=== PATIENT | male | born 1955 | race Caucasian/White ===

== ENCOUNTER 2019-06-17 13:41 | Outpatient (CLI) | payer MEDICARE, MEDICAID, SELFPAY ==
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
== END 2019-06-17 13:42 | disposition home or self-care (01) ==
LOC: WPI 13:49
PROVIDERS: Family Provider Internal Medicine; PCP Internal Medicine; Visit Provider Specialist
DX: Z18.10 Retained metal fragments, unspecified (principal); M25.752 Osteophyte, left hip
CPT/HCPCS: 73552; 73590

== ENCOUNTER 2019-06-30 13:39 | Outpatient (CLI) | payer MEDICARE, MEDICAID, SELFPAY ==
--- NOTE | 2019-06-30 14:30 | MR_ITS ---
WS: [id number] MRI HEAD WITH CONTRAST WITH ATTENTION TO THE INTERNAL AUDITORY CANALS TECHNIQUE: Sagittal T1, T2 axial, T2 axial flair, axial susceptibility weighted imaging, axial diffus ion weighted images, and coronal T2 images were obtained. Pre and post T1 axial and post T1 coronal i mages. ADC and FSPGR images. Post gadolinium images with attention to the internal auditory canals. A xial fiesta imaging. CLINICAL INFORMATION: DIZZINESS / GIDDINESS COMPARISON: None. FINDINGS: No evidence of restricted diffusion to suggest acute ischemia. Ventricular system and basal cisterns are patent. Mild small vessel changes. Moderate parenchymal volume loss. Encephalomalacia and gliosis left anterior temporal lobe likely due to prior ischemia or trauma. 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 Normal vascular flow voids at the skull base. No ex tra-axial fluid collections. Mild mucosal thickening in the ethmoid air cells. Mastoid air cells are well aerated. Trace mucosal thickening right mastoid tip. Proximal 7th and 8th cranial nerves appear normal. Normal trigeminal nerve root entry zones. No abnor mal intracranial enhancement. No evidence of enhancing IAC or CP angle mass. Normal optic chiasm and pituitary infundibulum. Normal cavernous sinuses. Incidental slightly low-lying cerebellar tonsils. Mild spinal canal narrowing in the upper cervical s pine at C3-C4. IMPRESSION: 1. No evidence of restricted diffusion to suggest acute ischemia. 2. Proximal 7th and 8th cranial nerves are normal in appearance. No evidence of enhancing IAC or CP angle mass. 3. Paranasal sinuses and mastoid air cells are well aerated. 4. Mild small vessel changes with moderate parenchymal volume loss. 5. Chronic appearing encephalomalacia and gliosis left anterior temporal lobe likely due to prior is chemia or trauma. 6. 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 7. Incidental slightly low-lying cerebral tonsils. 8. Mild central canal stenosis in the upper cervical spine at C3-C4.
[2019-06-30 15:43] LABS: Blood Urea Nitrogen 12 mg/dL (8-23); Glomerular Filtration Rate 67.4 mL/min (90-130)
== END 2019-06-30 13:40 | disposition home or self-care (01) ==
PROVIDERS: Family Provider Internal Medicine; PCP Internal Medicine; Visit Provider Specialist
DX: I63.9 Cerebral infarction, unspecified (principal); G93.89 Other specified disorders of brain; R07.89 Other chest pain; M48.02 Spinal stenosis, cervical region
CPT/HCPCS: 70553; 82565; 84520

== ENCOUNTER 2019-07-18 09:12 | Outpatient (CLI) | payer MEDICARE, MEDICAID, SELFPAY ==
[2019-07-18 09:51] LABS: Basophils # 0.1 10^3/uL (0.0-0.1); Basophils % 1.5 %; Eosinophils # 0.2 10^3/uL (0.0-0.8); Eosinophils % 5.8 %; Hematocrit 42.8 % (42.0-52.0); Hemoglobin 13.7 g/dL (11.7-16.6); Lymphocytes # 1.2 10^3/uL (0.8-4.8); Lymphocytes % 28.2 %; Mean Corpuscular Hemoglobin 27.6 pg (28.0-34.0); Mean Corpuscular Volume 86.3 fL (80-94); Mean Platelet Volume 11.6 fL (7.4-10.4); Monocytes # 0.4 10^3/uL (0.2-0.9); Neutrophils # 2.2 10^3/uL (1.8-7.7); Neutrophils % 53.5 %; Nucleated Red Blood Cells % 0 %; Platelet Count 208 10^3/cmm (130-400); Red Blood Count 4.96 10^6/uL (4.1-5.3); White Blood Count 4.1 10^3/uL (4.0-10.0)
[2019-07-18 10:03] LABS: Alanine Aminotransferase 15 U/L (0-41); Albumin Level 4.4 g/dL (3.5-5.2); Alkaline Phosphatase 62 IU/L (40-130); Anion Gap 16.3 (5-19); Aspartate Amino Transferase 14 U/L (0-40); Blood Urea Nitrogen 17 mg/dL (8-23); Calcium 10.3 mg/dL (8.5-10.5); Carbon Dioxide 28 mmol/L (22-29); Chloride 96 mmol/L (98-107); Chol HDL Ratio 2.59 mg/dL (1.0-5.00); Cholesterol 145 mg/dL (0-200); Globulin 3.1 g/dL (1.3-4.6); Glomerular Filtration Rate 67.4 mL/min (90-130); Glucose 188 mg/dL (74-106); HDL Cholesterol 56 mg/dL (60-100); LDL Cholesterol Calculated 78 mg/dL (50-129); LDL HDL Ratio 1.39 RATIO (0.00-3.22); Potassium 5.3 mmol/L (3.5-5.1); Sodium 135 mmol/L (136-145); Thyroid Stimulating Hormone 0.93 uIU/mL (0.27-4.20); Total Bilirubin 0.7 mg/dL (0.15-1.2); Total Protein 7.5 g/dL (6.6-8.7); Triglycerides 53 mg/dL (0-150)
[2019-07-18 10:26] LABS: Estmated Average Glucose 183
== END 2019-07-18 09:13 | disposition home or self-care (01) ==
LOC: LAB 09:17
PROVIDERS: Family Provider Internal Medicine; PCP Internal Medicine; Visit Provider Internal Medicine
DX: E11.9 Type 2 diabetes mellitus without complications (principal); E78.5 Hyperlipidemia, unspecified; I10 Essential (primary) hypertension
CPT/HCPCS: 36415; 80053; 80061; 83036; 84443; 85025

== ENCOUNTER 2019-11-22 11:34 | Outpatient (RCR) | payer MEDICARE, MEDICAID, SELFPAY | END 2019-12-13 23:59 | disposition home or self-care (01) | LOC: SPT 11:34 | PROVIDERS: PCP Internal Medicine; Visit Provider Specialist | DX: R42 Dizziness and giddiness (principal) | CPT/HCPCS: 97112; 97162 ==

== ENCOUNTER 2019-12-14 06:00 | Outpatient (RCR) | payer MEDICARE, MEDICAID, SELFPAY | END 2020-01-13 23:59 | disposition home or self-care (01) | LOC: SPT 06:00 | PROVIDERS: PCP Internal Medicine; Visit Provider Specialist | DX: R42 Dizziness and giddiness (principal) | CPT/HCPCS: 97112 ==

== ENCOUNTER 2020-06-28 21:49 | Emergency (ER) | payer MEDICARE, MEDICAID, SELFPAY ==
[2020-06-28 21:52] VITALS: BP 141/73; PULSE 125; RESP 18; TEMP 37.5; O2SAT 96; BMI 29.5
--- NOTE | 2020-06-28 22:32 | XR_ITS ---
WS: [id number] KUB, 06/28/2020 Clinical Data: constipation Comparison: KUB, 01/04/2016. Findings: No abnormal intraabdominal masses or calcifications are seen. There is no dilatated small bowel or ev idence of obstruction. There is a moderate amount of fecal material throughout the colon. There is air in the small bowel. XR/XR KUB [id number] Impression: Negative KUB.
--- NOTE | 2020-06-28 22:34 | W.ED.ABDPA2 ---
HPI - Abdominal Pain General: Chief Complaint: Abdominal Pain Stated Complaint: pains from constipation, unable to urinate. Time Seen by Provider: 06/28/20 22:16 Source: patient Mode of arrival: ambulatory Limitations: no limitations History of Present Illness: HPI narrative: 64-year-old male who has a history of severe constipation the past. He states he is not had a bowel movement last 3 to 4 days. He states is causing have lower abdominal pain and is caused him to have difficulty urinating. He states he had difficulty urinating in the past before with his constipation as well. States he has lower abdominal pain he rates a 6 out of 10. He has been taking stool softeners with no improvement. Associated Symptoms: Reports constipation; Denies chills and fever(s) Review of Systems Const: Denies: fever(s), chills, body aches or change in appetite Eyes: Denies: blurry vision or eye discomfort ENMT: Denies: throat pain or dental pain Card: Denies: chest pain Resp: Denies: dyspnea GI: Reports: abdominal pain and constipation : Reports: difficulty urinating Musc: Denies: neck pain or back pain Skin/Breast: Denies: rash Neuro: Denies: headache(s) Psych: Denies: depression Uche/Lymph: Denies: easy bruising All/Imm: Denies: urticaria PFSH ED PFSH: Family History (Updated 05/11/20 @ 09:27 by Caitlin Knox RN) Family/Other Cancer Diabetes CAD (coronary artery disease) Social History (Updated 05/11/20 @ 09:28 by Caitlin Knox RN) Smoking and tobacco status: former smoker Alcohol intake: never Marital status: Current occupational status: disabled Physical Exam Const: COMMON NORMALS: no acute distress, patient oriented x3 and healthy appearing HENMT: COMMON NORMALS: normocephalic and atraumatic HEAD & SCALP: normocephalic and atraumatic Eye: COMMON NORMALS: Equal, round and reactive pupils present and EOMs intact bilaterally PUPIL: Yes Equal, round and reactive pupils present Neck/C-Spine: COMMON NORMALS: full ROM and supple Chest: COMMONS NORMALS: normal inspection of the chest and normal palpation of entire chest wall Resp: COMMON NORMALS: normal respiratory effort, No retractions, No use of accessory muscles and clear to auscultation bilaterally AUSCULTATION: clear to auscultation bilaterally Cardio: COMMON NORMALS: regular rate, regular rhythm and No murmurs present (Cardio) RATE: regular rate RHYTHM: regular rhythm GI: COMMON NORMALS: Normal to inspection, nondistended, normoactive bowel sounds present, Soft to palpation and no masses PALPATION: Yes Soft to palpation OTHER: lower abdominal tenderness Extremity: COMMON NORMALS: normal to inspection and full ROM Neuro: COMMON NORMALS: patient oriented x3, moves all extremities and no focal motor deficits Psych: COMMON NORMALS: mental status grossly normal, Normal thought process present and cooperative THOUGHT PROCESS: Normal thought process present Skin: COMMON NORMALS: no rashes or lesions noted and no wounds GENERAL SKIN EXAM: no rashes or lesions noted Course Vital Signs: Vital signs: Vital Signs Temperature 99.5 F 06/28/20 21:52 Pulse Rate 110 H 06/28/20 23:41 Respiratory Rate 18 06/28/20 21:52 Blood Pressure 124/90 06/28/20 23:41 Pulse Oximetry 95 06/28/20 23:41 MDM - Abdominal Pain MDM Narrative: Medical decision making narrative: Patient presents here with constipation. He feels much improved here after having a bowel movement. Patient was given an enema and lactulose. Abdominal exam at discharge is benign. Patient blood work is normal. He has no signs of acute surgical issue. He is stable for discharge will prescribe her MiraLAX. Lab Data: Labs: Lab Results 06/28/20 06/28/20 Range/Units 23:24 23:24 WBC 10.2 H (4.0-10.0) 10^3/ uL RBC 5.25 (4.1-5.3) 10^6/u L Hgb 15.0 (11.7-16.6) g/dL Hct 45.5 (42.0-52.0) % MCV 86.7 (80-94) fL MCH 28.6 (28.0-34.0) pg MCHC 33.0 (30.0-36.0) g/dL RDW 12.7 (12.1-15.1) % Plt Count 213 (130-400) 10^3/c mm MPV 12.0 H (7.4-10.4) fL Neut % (Auto) 86.9 % Lymph % (Auto) 6.8 % [place] % (Auto) 5.2 % Eos % (Auto) 0.3 % Baso % (Auto) 0.4 % Neut # (Auto) 8.86 H (1.8-7.7) 10^3/u L Lymph # (Auto) 0.7 L (0.8-4.8) 10^3/u L [place] # (Auto) 0.5 (0.2-0.9) 10^3/u L Eos # (Auto) 0.0 (0.0-0.8) 10^3/u L Baso # (Auto) 0.0 (0.0-0.1) 10^3/u L Nucleated RBC % (a uto) 0 % Nucleated RBCs # 0.0 /100WBC Sodium 135 L (136-145) mmol/L Potassium 5.0 (3.5-5.1) mmol/L Chloride 98 (98-107) mmol/L Carbon Dioxide 26 (22-29) mmol/L Anion Gap 16.0 (5-19) BUN 19 (8-23) mg/dL Creatinine 1.0 (0.7-1.2) mg/dL GFR Calculation 75.0 L (90-130) mL/min Glucose 406 H (65-115) mg/dL Calculated Osmolal ity 299 H (285-295) mOsm/k g Calcium 9.9 (8.5-10.5) mg/dL Total Bilirubin 0.9 (0.15-1.2) mg/dL AST 17 (0-40) U/L ALT 39 (0-41) U/L Alkaline Phosphata se 64 (40-130) IU/L Total Protein 7.4 (6.6-8.7) g/dL Albumin 4.8 (3.5-5.2) g/dL Globulin 2.6 (1.3-4.6) g/dL Imaging Data ^: CXR: Attestation: I personally reviewed and interpreted this imaging study as follows: My impression: constipation Discharge Plan Discharge Patient Disposition: Home Clinical Impression: Constipation Qualifiers: Constipation type: unspecified constipation type Qualified Code(s): K59.00 - Constipation, unspecified Condition: Stable Prescriptions: New Miralax 17 gram/dose powder 17 g PO DAILY PRN (Reason: constipation) Qty: 119 RF: 0 Discharge Orders: Discharge ED (Routine); Ordered 06/29/20 Ordered By: Cris Sifuentes Referrals: Gillian Redmond MD [Primary Care Provider] - 1-3 days Discharge Diet: Advance as tolerated Discharge Activity: Resume usual activity Patient Instructions: Constipation (ED) Coding Level of Care Code ED Manager Installation for Chg Fwd Exam Comprehensive
[2020-06-28] MEDS: lactulose oral liq 20 gm/30 mL UDC 30 GM PO (22:48)
[2020-06-28 22:50] VITALS: BP 116/88; PULSE 126; O2SAT 96
[2020-06-28 23:41] VITALS: BP 124/90; PULSE 110; O2SAT 95
[2020-06-28 23:45] LABS: Basophils % 0.4 %; Eosinophils % 0.3 %; Hematocrit 45.5 % (42.0-52.0); Lymphocytes # 0.7 10^3/uL (0.8-4.8); Lymphocytes % 6.8 %; Mean Corpuscular Hemoglobin 28.6 pg (28.0-34.0); Mean Corpuscular Volume 86.7 fL (80-94); Monocytes # 0.5 10^3/uL (0.2-0.9); Monocytes % 5.2 %; Neutrophils # 8.86 10^3/uL (1.8-7.7); Neutrophils % 86.9 %; Nucleated Red Blood Cells % 0 %; Platelet Count 213 10^3/cmm (130-400); Red Blood Count 5.25 10^6/uL (4.1-5.3); Red Cell Distribution Width 12.7 % (12.1-15.1); White Blood Count 10.2 10^3/uL (4.0-10.0)
[2020-06-29 00:11] LABS: Alanine Aminotransferase 39 U/L (0-41); Albumin Level 4.8 g/dL (3.5-5.2); Alkaline Phosphatase 64 IU/L (40-130); Aspartate Amino Transferase 17 U/L (0-40); Blood Urea Nitrogen 19 mg/dL (8-23); Calcium 9.9 mg/dL (8.5-10.5); Carbon Dioxide 26 mmol/L (22-29); Chloride 98 mmol/L (98-107); Globulin 2.6 g/dL (1.3-4.6); Glucose 406 mg/dL (65-115); Osmolality Calculated 299 mOsm/kg (285-295); Sodium 135 mmol/L (136-145); Total Bilirubin 0.9 mg/dL (0.15-1.2); Total Protein 7.4 g/dL (6.6-8.7)
[2020-06-29] MEDS: Fleet Enema 133 mL Enema PR (00:35)
== END 2020-06-29 01:41 | disposition home or self-care (01) ==
PROVIDERS: Emergency Provider Emergency Medicine; PCP Internal Medicine
DX: K59.00 Constipation, unspecified (principal); Z87.891 Personal history of nicotine dependence
CPT/HCPCS: 12345; 74018; 80053; 85025; 99283

== ENCOUNTER → 2020-07-17 11:28 | Outpatient (BNVA) | payer MEDICARE, MEDICAID, SELFPAY | PROVIDERS: PCP Internal Medicine; Referring Provider Internal Medicine; Visit Provider Podiatrist Foot & Ankle Surgery | DX: E11.8 Type 2 diabetes mellitus with unspecified complications (principal); M79.672 Pain in left foot | CPT/HCPCS: 73630 ==

== ENCOUNTER 2020-08-28 10:42 | Outpatient (CLI) | payer MEDICARE, MEDICAID, SELFPAY ==
--- NOTE | 2020-08-28 10:45 | US_ITS ---
WS: [id number] INDICATION: Right cervical neck lump TECHNIQUE: Ultrasound soft tissue FINDINGS: Ultrasound soft tissue area of concern. In the area of palpable concern is a 2.4 x 2.5 x 0. 8 CM well-circumscribed slightly hypoechoic lesion that likely represents incidental lipoma. This schuler s not appear to represent a lymph node. This is superficial in location. No other significant finding s. US/US soft tissue/extremity [id number] IMPRESSION: 2.5 cm suspected lipoma in the area of palpable concern. No other s uspicious findings.
== END 2020-08-28 10:43 | disposition home or self-care (01) ==
LOC: US 10:43
PROVIDERS: PCP Internal Medicine; Visit Provider Internal Medicine
DX: M79.89 Other specified soft tissue disorders (principal)
CPT/HCPCS: 76882

== ENCOUNTER → 2020-09-19 15:06 | Outpatient (BNVA) | payer MEDICARE, MEDICAID, SELFPAY | PROVIDERS: PCP Internal Medicine; Visit Provider Urology | DX: H20.00 Unspecified acute and subacute iridocyclitis (principal); R33.8 Other retention of urine; N40.1 Benign prostatic hyperplasia with lower urinary tract symptoms; N52.9 Male erectile dysfunction, unspecified | CPT/HCPCS: 81003 ==

== ENCOUNTER → 2021-09-19 13:55 | Outpatient (BNVA) | payer MEDICARE, MEDICAID, SELFPAY | PROVIDERS: PCP Internal Medicine; Visit Provider Urology | DX: N40.1 Benign prostatic hyperplasia with lower urinary tract symptoms (principal); N52.9 Male erectile dysfunction, unspecified; Z12.5 Encounter for screening for malignant neoplasm of prostate | CPT/HCPCS: 81003; G0103 ==

== ENCOUNTER 2021-09-24 20:00 | Outpatient (CLI) | payer MEDICARE, MEDICAID, SELFPAY | END 2021-09-24 20:01 | disposition home or self-care (01) | LOC: SLEEP 09-25 06:44 | PROVIDERS: PCP Internal Medicine; Visit Provider Internal Medicine | DX: G47.10 Hypersomnia, unspecified (principal); R53.83 Other fatigue; R06.83 Snoring; R09.02 Hypoxemia | CPT/HCPCS: 95810 ==

== ENCOUNTER → 2021-10-29 09:21 | Outpatient (BNVA) | payer MEDICARE, MEDICAID, SELFPAY | PROVIDERS: PCP Internal Medicine; Visit Provider Podiatrist Foot & Ankle Surgery | DX: E11.42 Type 2 diabetes mellitus with diabetic polyneuropathy (principal); I73.9 Peripheral vascular disease, unspecified; M21.70 Unequal limb length (acquired), unspecified site; L84 Corns and callosities; M20.40 Other hammer toe(s) (acquired), unspecified foot; M21.40 Flat foot [pes planus] (acquired), unspecified foot; M21.372 Foot drop, left foot; L60.3 Nail dystrophy; E11.8 Type 2 diabetes mellitus with unspecified complications | CPT/HCPCS: 11056; 11721 ==

== ENCOUNTER → 2022-02-10 13:19 | Outpatient (BNVA) | payer MEDICARE, MEDICAID, SELFPAY | PROVIDERS: PCP Internal Medicine; Visit Provider Podiatrist Foot & Ankle Surgery | DX: E11.8 Type 2 diabetes mellitus with unspecified complications (principal); I73.9 Peripheral vascular disease, unspecified; L84 Corns and callosities; E11.42 Type 2 diabetes mellitus with diabetic polyneuropathy; M20.40 Other hammer toe(s) (acquired), unspecified foot; M21.372 Foot drop, left foot; L60.3 Nail dystrophy; M21.41 Flat foot [pes planus] (acquired), right foot; M21.42 Flat foot [pes planus] (acquired), left foot; Z79.4 Long term (current) use of insulin; Z79.84 Long term (current) use of oral hypoglycemic drugs; M21.952 Unspecified acquired deformity of left thigh | CPT/HCPCS: 11056; 11721 ==

== ENCOUNTER → 2022-04-29 09:24 | Outpatient (BNVA) | payer MEDICARE, MEDICAID, SELFPAY | PROVIDERS: PCP Internal Medicine; Visit Provider Podiatrist Foot & Ankle Surgery | DX: E11.8 Type 2 diabetes mellitus with unspecified complications (principal); I73.9 Peripheral vascular disease, unspecified; M21.952 Unspecified acquired deformity of left thigh; M21.42 Flat foot [pes planus] (acquired), left foot; L84 Corns and callosities; E11.42 Type 2 diabetes mellitus with diabetic polyneuropathy; M20.40 Other hammer toe(s) (acquired), unspecified foot; M21.372 Foot drop, left foot; L60.3 Nail dystrophy | CPT/HCPCS: 11056; 11721 ==

== ENCOUNTER → 2022-08-05 09:30 | Outpatient (BNVA) | payer MEDICARE, MEDICAID, SELFPAY | PROVIDERS: PCP Internal Medicine; Visit Provider Podiatrist Foot & Ankle Surgery | DX: I73.9 Peripheral vascular disease, unspecified (principal); E11.42 Type 2 diabetes mellitus with diabetic polyneuropathy; L84 Corns and callosities; M21.372 Foot drop, left foot; L60.3 Nail dystrophy; M21.70 Unequal limb length (acquired), unspecified site; M21.42 Flat foot [pes planus] (acquired), left foot; M21.41 Flat foot [pes planus] (acquired), right foot; M20.40 Other hammer toe(s) (acquired), unspecified foot | CPT/HCPCS: 11055; 11721; 99214 ==

== ENCOUNTER → 2022-08-28 10:57 | Outpatient (BNVA) | payer MEDICARE, MEDICAID, SELFPAY | PROVIDERS: PCP Internal Medicine; Visit Provider Podiatrist Foot & Ankle Surgery | DX: I73.9 Peripheral vascular disease, unspecified (principal); L84 Corns and callosities; E11.42 Type 2 diabetes mellitus with diabetic polyneuropathy; M21.372 Foot drop, left foot; L60.3 Nail dystrophy; M21.952 Unspecified acquired deformity of left thigh; Z79.4 Long term (current) use of insulin; Z79.84 Long term (current) use of oral hypoglycemic drugs; M20.40 Other hammer toe(s) (acquired), unspecified foot; M21.40 Flat foot [pes planus] (acquired), unspecified foot | CPT/HCPCS: 11056; 11721 ==

== ENCOUNTER → 2022-11-13 10:55 | Outpatient (BNVA) | payer MEDICARE, MEDICAID, SELFPAY | PROVIDERS: PCP Internal Medicine; Visit Provider Podiatrist Foot & Ankle Surgery | DX: E11.8 Type 2 diabetes mellitus with unspecified complications (principal); I73.9 Peripheral vascular disease, unspecified; L84 Corns and callosities; E11.42 Type 2 diabetes mellitus with diabetic polyneuropathy; M20.40 Other hammer toe(s) (acquired), unspecified foot; M21.372 Foot drop, left foot; L60.3 Nail dystrophy; M21.41 Flat foot [pes planus] (acquired), right foot; M21.42 Flat foot [pes planus] (acquired), left foot; Z79.4 Long term (current) use of insulin; Z79.84 Long term (current) use of oral hypoglycemic drugs | CPT/HCPCS: 11056; 11721 ==

== ENCOUNTER 2022-11-24 07:11 | Emergency (ER) | payer MEDICARE, MEDICAID, SELFPAY ==
[2022-11-24 07:13] VITALS: BP 150/108; PULSE 73; RESP 16; TEMP 36.7; O2SAT 99
--- NOTE | 2022-11-24 07:17 | XR_ITS ---
WS: [id number] XR KUB portable [id number] REASON FOR EXAM: constipation FINDINGS: Large volume stool retention throughout the entire colon with large amount of fecal material in the r ectal vault. No significant small bowel distention. No free air or retroperitoneal air. Possible small right intrarenal calculi. Otherwise no significant calcifications. No mass is identified. XR/XR KUB portable [id number] IMPRESSION: Significant fecal retention as above. Possible right renal calculi.
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
[2022-11-24 07:53] LABS: Add Urine Microscopic? NO; Charge for UA Resulting for Rev
[2022-11-24 08:02] VITALS: BP 130/65; PULSE 78; RESP 16; O2SAT 97
[2022-11-24 08:04] LABS: Glucose Urine UA 4+ (Normal); Protein Urine Neg (Negative); Specific Gravity, Urine 1.015 (1.005-1.030); Urine Appearance Clear (CLEAR); Urine Color Straw (Yellow); pH Urine 5 (5-7)
[2022-11-24 08:05] LABS: Ketones Urine 1+ (Negative)
[2022-11-24 08:06] LABS: Bilirubin Urine Neg (Negative); Blood Urine Neg (Negative); Leukocyte Esterase Urine Negative (Negative); Nitrate Urine Negative (Negative); Urobilinogen Urine Norm (Negative)
[2022-11-24 08:08] LABS: Basophils # 0.1 10^3/uL (0.0-0.1); Basophils % 0.5 %; Eosinophils # 0.1 10^3/uL (0.0-0.8); Hematocrit 44.9 % (42.0-52.0); Hemoglobin 14.5 g/dL (11.7-16.6); Lymphocytes # 0.7 10^3/uL (0.8-4.8); Lymphocytes % 6.2 %; Mean Corpuscular HGB Conc 32.3 g/dL (30.0-36.0); Mean Corpuscular Hemoglobin 29.1 pg (28.0-34.0); Mean Platelet Volume 11.2 fL (7.4-10.4); Monocytes # 0.4 10^3/uL (0.2-0.9); Monocytes % 3.9 %; Neutrophils # 9.26 10^3/uL (1.8-7.7); Nucleated Red Blood Cells % 0 %; Platelet Count 155 10^3/cmm (130-400); Red Blood Count 4.99 10^6/uL (4.1-5.3); White Blood Count 10.5 10^3/uL (4.0-10.0)
[2022-11-24 08:24] LABS: Blood Urea Nitrogen 27 mg/dL (8-23); Carbon Dioxide 21 mmol/L (22-29); Chloride 108 mmol/L (98-107); Glomerular Filtration Rate 66.6 mL/min (90-130); Glucose 181 mg/dL (65-115); Osmolality Calculated 304 mOsm/kg (285-295); Sodium 142 mmol/L (136-145)
[2022-11-24 08:28] LABS: Anion Gap 17.7 (5-19); Potassium 4.7 mmol/L (3.5-5.1)
[2022-11-24 11:31] VITALS: BP 130/65; PULSE 78; RESP 16; O2SAT 97
== END 2022-11-24 11:40 | disposition home or self-care (01) ==
PROVIDERS: Physician Assistant; Emergency Provider Family Medicine; PCP Internal Medicine
DX: K59.00 Constipation, unspecified (principal); R33.9 Retention of urine, unspecified; Z79.82 Long term (current) use of aspirin; Z79.84 Long term (current) use of oral hypoglycemic drugs; Z79.4 Long term (current) use of insulin; E11.9 Type 2 diabetes mellitus without complications; E78.5 Hyperlipidemia, unspecified; I10 Essential (primary) hypertension; Z87.820 Personal history of traumatic brain injury
CPT/HCPCS: 51702; 74018; 80048; 81003; 85025; 99284

== ENCOUNTER 2022-12-05 09:33 | Outpatient (RCR) | payer MEDICARE, MEDICAID, SELFPAY | END 2022-12-12 23:59 | disposition home or self-care (01) | LOC: SPT 09:33 | PROVIDERS: PCP Internal Medicine; Visit Provider Podiatrist Foot & Ankle Surgery | DX: M21.951 Unspecified acquired deformity of right thigh (principal) | CPT/HCPCS: 97161 ==

== ENCOUNTER 2022-12-13 06:00 | Outpatient (RCR) | payer MEDICARE, MEDICAID, SELFPAY | END 2023-01-09 12:19 | disposition home or self-care (01) | LOC: SPT 06:00 | PROVIDERS: PCP Internal Medicine; Visit Provider Podiatrist Foot & Ankle Surgery | DX: M21.951 Unspecified acquired deformity of right thigh (principal) | CPT/HCPCS: 97110 ==

== ENCOUNTER → 2023-01-15 09:23 | Outpatient (BNVA) | payer MEDICARE, MEDICAID, SELFPAY | PROVIDERS: PCP Internal Medicine; Visit Provider Podiatrist Foot & Ankle Surgery | DX: I73.9 Peripheral vascular disease, unspecified (principal); L84 Corns and callosities; M20.41 Other hammer toe(s) (acquired), right foot; M20.42 Other hammer toe(s) (acquired), left foot; M21.41 Flat foot [pes planus] (acquired), right foot; M21.42 Flat foot [pes planus] (acquired), left foot; M21.372 Foot drop, left foot; L60.3 Nail dystrophy; M21.952 Unspecified acquired deformity of left thigh; E11.9 Type 2 diabetes mellitus without complications; Z79.4 Long term (current) use of insulin; Z79.84 Long term (current) use of oral hypoglycemic drugs | CPT/HCPCS: 11056; 11721 ==

== ENCOUNTER → 2023-03-18 11:28 | Outpatient (BNVA) | payer MEDICARE, MEDICAID, SELFPAY | PROVIDERS: PCP Internal Medicine; Visit Provider Podiatrist Foot & Ankle Surgery | DX: L60.8 Other nail disorders (principal); I73.9 Peripheral vascular disease, unspecified; M21.959 Unspecified acquired deformity of unspecified thigh; L84 Corns and callosities; M20.40 Other hammer toe(s) (acquired), unspecified foot; M21.372 Foot drop, left foot; L60.3 Nail dystrophy; M21.42 Flat foot [pes planus] (acquired), left foot; M21.41 Flat foot [pes planus] (acquired), right foot; E11.8 Type 2 diabetes mellitus with unspecified complications; Z79.84 Long term (current) use of oral hypoglycemic drugs; Z79.4 Long term (current) use of insulin | CPT/HCPCS: 11056; 11721 ==

== ENCOUNTER → 2023-06-17 14:29 | Outpatient (BNVA) | payer MEDICARE, MEDICAID, SELFPAY | PROVIDERS: PCP Internal Medicine; Visit Provider Podiatrist Foot & Ankle Surgery | DX: I73.9 Peripheral vascular disease, unspecified (principal); M21.959 Unspecified acquired deformity of unspecified thigh; L84 Corns and callosities; L60.8 Other nail disorders; M20.40 Other hammer toe(s) (acquired), unspecified foot; M21.372 Foot drop, left foot; L60.3 Nail dystrophy; M21.41 Flat foot [pes planus] (acquired), right foot; M21.42 Flat foot [pes planus] (acquired), left foot | CPT/HCPCS: 11056; 11721 ==

== ENCOUNTER → 2023-09-23 14:33 | Outpatient (BNVA) | payer MEDICARE, MEDICAID, SELFPAY | PROVIDERS: PCP Internal Medicine; Visit Provider Podiatrist Foot & Ankle Surgery | DX: I73.9 Peripheral vascular disease, unspecified (principal); L84 Corns and callosities; M21.372 Foot drop, left foot; L60.3 Nail dystrophy; E11.42 Type 2 diabetes mellitus with diabetic polyneuropathy; M21.952 Unspecified acquired deformity of left thigh; Z79.4 Long term (current) use of insulin; Z79.84 Long term (current) use of oral hypoglycemic drugs | CPT/HCPCS: 11056; 11721 ==

== ENCOUNTER 2023-11-10 15:09 | Outpatient (CLI) | payer MEDICARE, MEDICAID, SELFPAY ==
--- NOTE | 2023-11-10 15:22 | XR_ITS ---
WS: [id number] Exam: XR lumbar spine 2-3V* [id number] Date/Time of Exam: 11/10/2023 3:26 PM Reason For Exam: DDD,LUMBAR W/RADICULOPATHY No acute fracture or dislocation. Mild degenerative anterolisthesis of L5 on S1. Degenerative disc na rrowing at L1-2, L2-3 and L5-S1. Facet arthropathy at L4-5 and L5-S1. Mild levoscoliosis at the thora columbar junction. XR/XR lumbar spine 2-3V* [id number] IMPRESSION: 1. Mild degenerative anterolisthesis of L5 on S1. Degenerative disc changes at several levels as discussed above. 2. No acute fracture or malalignment. Mild levoscoliosis at the thoracolumbar j unction.
--- NOTE | 2023-11-10 15:22 | XR_ITS ---
WS: [id number] Exam: XR hip LT 2-3V wo/w pel* [id number] Date/Time of Exam: 11/10/2023 3:26 PM Reason For Exam: PAIN IN LEFT HIP No acute fracture or dislocation. Mild degenerative narrowing of the joint compartment. Normal soft t issues. XR/XR hip LT 2-3V wo/w pel* [id number] IMPRESSION: 1. Mild DJD. No fracture or dislocation.
== END 2023-11-10 15:10 | disposition home or self-care (01) ==
LOC: RAD 15:12
PROVIDERS: PCP Internal Medicine; Visit Provider Internal Medicine
DX: M51.17 Intervertebral disc disorders with radiculopathy, lumbosacral region (principal)
CPT/HCPCS: 72100; 73502

== ENCOUNTER → 2023-12-29 09:40 | Outpatient (BNVA) | payer MEDICARE, MEDICAID, SELFPAY | PROVIDERS: PCP Internal Medicine; Visit Provider Podiatrist Foot & Ankle Surgery | DX: I73.9 Peripheral vascular disease, unspecified (principal); L84 Corns and callosities; M21.372 Foot drop, left foot; L60.3 Nail dystrophy; E11.42 Type 2 diabetes mellitus with diabetic polyneuropathy; R26.9 Unspecified abnormalities of gait and mobility; M21.952 Unspecified acquired deformity of left thigh; Z79.84 Long term (current) use of oral hypoglycemic drugs; Z79.4 Long term (current) use of insulin | CPT/HCPCS: 11056; 11721; 99213 ==

== ENCOUNTER 2024-03-07 06:53 | Outpatient (CLI) | payer MEDICARE, MEDICAID, SELFPAY ==
[2024-03-07 07:11] VITALS: BMI 26.6
--- NOTE | 2024-03-07 07:11 | ECG_ITS ---
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 Interpretive Statements Lexiscan/sestamibi/sestamibi stress test PROCEDURE: At the baseline, the EKG revealed normal sinus rhythm with a frequent premature atrial contractions. The baseline heart was bpm with a blood pressue of mm of Hg Lexiscan was infused over a period of 20 seconds. A total of 0.4 milligrams of Lexiscan was infused. The stress phase was continued for a total of 5 minutes. Heart rate at the end of the stress phase was 81 bpm with a blood pressure 105/49 mm of Hg. The EKG at the peak infusion revealed no significant changes. Sestamibi was injected 20 seconds after the Lexiscan infusion. Heart rate at the end of the recovery phase was 101 bpm with a blood pressure of 107/48 mm of Hg. CONCLUSION: 1. No significant EKG changes with the LexiScan infusion 2. No LexiScan induced chest pain or cardiac arrhythmia 3. Normal blood pressure and heart rate response 4. Sestamibi/sestamibi perfusion scan pending; see separate report. Electronically Signed On 03-13-2024 21:50:29 CDT by Hector Augustine M.D. [email or web address]
--- NOTE | 2024-03-07 07:11 | NMCV_ITS ---
NM mike perf SPECT r/s* [id number] Abdullahi Grande Age: 68 Gender: M : 1955 Exam Date: 03/07/2024 08:28 Ordering Phys: Gillian Redmond MD Technologist: OTTONIEL Rosado Exam Location: [facility] Indications: CP STRESS TEST Please [facility] for [facility] IMAGE PROTOCOL Rest/Stress 1 Lexiscan Day Radiopharmaceutical Dose (mCi) Administration Site Administered by Rest: Tc-99m 10.8 IV Leigh Perez, DATA COMMUNICATIONS SOFTWARE CONSULTANT Sestamibi Stress:Tc-99m 31.5 IV Leigh Ana, DATA COMMUNICATIONS SOFTWARE CONSULTANT Sestamibi Rest: 07-Mar-2024 60 Discovery 630 Stress: 07-Mar-2024 30 Discovery 630 0.4mg Lexiscan. Images obtained in supine and prone position. SPECT RESULTS Technical Quality: Good Raw Data Analysis: Normal Image Corrections: No attenuation or motion correction applied Summed Stress Score: 3 Summed Rest Score: 1 Summed Difference Score: 2 PERFUSION FINDINGS Small area of minimal to moderately decreased tracer uptake involving the mid and apical inferior wall regions. Significant reversibility was noted in this area with the supine imaging. However with the prone imaging, no significant reversible defects were noted FUNCTIONAL RESULTS (calculated via Gated SPECT) Stress Image LV EF (%): 58 Stress EDV (mL):91 TID: 0.95 Stress ESV (mL):38 FUNCTIONAL FINDINGS: Segmental wall motion analysis revealing no gross wall motion abnormalities IMPRESSIONS 1. Myocardial perfusion imaging revealing small area of reversible defect in the mid inferior wall region suggesting ischemia in the distribution of the right coronary artery. However because of the inconsistency with the prone imaging, the relability is questionable. 2. Normal LV ejection fraction of 58%. 3. LV wall motion analysis revealing no gross wall motion abnormalities. 4. Normal LV volume No similar previous studies are available for comparison Dr Hector Augustine MD [facility] (Electronically Signed) Final Date: 07 March 2024 16:12 S
[2024-03-07] MEDS: regadenoson 0.4 Mg/5 ml Syringe IVP (09:09)
[2024-03-07 09:22] VITALS: BP 107/51; PULSE 82
== END 2024-03-07 06:54 | disposition home or self-care (01) ==
PROVIDERS: PCP Internal Medicine; Visit Provider Internal Medicine
DX: R07.9 Chest pain, unspecified (principal); R94.39 Abnormal result of other cardiovascular function study
CPT/HCPCS: 36415; 78452; 93017; 96374; A9500; J2785

== ENCOUNTER → 2024-03-30 13:37 | Outpatient (BNVA) | payer MEDICARE, MEDICAID, SELFPAY | PROVIDERS: PCP Internal Medicine; Visit Provider Podiatrist Foot & Ankle Surgery | DX: I73.9 Peripheral vascular disease, unspecified (principal); L84 Corns and callosities; M21.372 Foot drop, left foot; L60.3 Nail dystrophy; E11.42 Type 2 diabetes mellitus with diabetic polyneuropathy; M21.952 Unspecified acquired deformity of left thigh; Z79.84 Long term (current) use of oral hypoglycemic drugs; Z79.4 Long term (current) use of insulin | CPT/HCPCS: 11056; 11721 ==

== ENCOUNTER → 2024-05-19 13:30 | Outpatient (BNVA) | payer MEDICARE, MEDICAID, SELFPAY | PROVIDERS: PCP Internal Medicine; Referring Provider Internal Medicine; Visit Provider Internal Medicine Cardiovascular Disease | DX: R07.9 Chest pain, unspecified (principal) | CPT/HCPCS: 93005 ==

== ENCOUNTER → 2024-07-04 11:30 | Outpatient (BNVA) | payer MEDICARE, MEDICAID, SELFPAY | PROVIDERS: PCP Internal Medicine; Visit Provider Internal Medicine Cardiovascular Disease | DX: E11.42 Type 2 diabetes mellitus with diabetic polyneuropathy (principal); L60.3 Nail dystrophy; L84 Corns and callosities; I73.9 Peripheral vascular disease, unspecified; M21.952 Unspecified acquired deformity of left thigh; M21.372 Foot drop, left foot; Z79.84 Long term (current) use of oral hypoglycemic drugs; Z79.4 Long term (current) use of insulin | CPT/HCPCS: 11056; 11721 ==

== ENCOUNTER → 2024-09-12 11:29 | Outpatient (BNVA) | payer MEDICARE, MEDICAID, SELFPAY | PROVIDERS: PCP Internal Medicine; Visit Provider Podiatrist Foot & Ankle Surgery | DX: E11.42 Type 2 diabetes mellitus with diabetic polyneuropathy (principal); L60.3 Nail dystrophy; L84 Corns and callosities; I73.9 Peripheral vascular disease, unspecified; Z79.84 Long term (current) use of oral hypoglycemic drugs; Z79.4 Long term (current) use of insulin | CPT/HCPCS: 11056; 11721 ==

== ENCOUNTER → 2024-11-21 10:50 | Outpatient (BNVA) | payer MEDICARE, MEDICAID, SELFPAY | PROVIDERS: PCP Internal Medicine; Visit Provider Podiatrist Foot & Ankle Surgery | DX: E11.42 Type 2 diabetes mellitus with diabetic polyneuropathy (principal); L60.3 Nail dystrophy; L84 Corns and callosities; E11.8 Type 2 diabetes mellitus with unspecified complications; I73.9 Peripheral vascular disease, unspecified; Z79.84 Long term (current) use of oral hypoglycemic drugs; Z79.4 Long term (current) use of insulin | CPT/HCPCS: 11056; 11721 ==

== ENCOUNTER 2025-03-18 11:38 | Emergency (ER) | payer MEDICARE, MEDICAID, SELFPAY ==
[2025-03-18 11:41] VITALS: BP 138/91; PULSE 72; RESP 16; TEMP 36.8; O2SAT 99; BMI 25.1
--- NOTE | 2025-03-18 11:46 | W.ED.RECABL ---
HPI - Recheck/Abnormal Lab/Rx General: Chief Complaint: Recheck/Abnormal Lab/Rx Stated Complaint: Needs Blood Sugar checked Time Seen by Provider: 03/18/25 11:41 Source: patient Mode of arrival: ambulatory Limitations: no limitations History of Present Illness: 69-year-old male who has a history of diabetes states that he wanted have his blood sugar checked here because he thinks that his monitors at home may be incorrect. He has no medical complaints today he feels at his baseline. Denies any pain anywhere Related Data Home Medications ?Medication ?Instructions ?Recorded ?Confirmed albuterol sulfate 90 mcg/actuation 2 puff inhalation Q6H PRN 07/17/20 11/21/24 aerosol inhaler aspirin 81 mg tablet,delayed 81 mg PO DAILY 07/17/20 11/21/24 release docusate sodium 100 mg capsule 100 mg PO BID 07/17/20 11/21/24 fluticasone propionate 50 1 spray intranasal DAILY 07/17/20 11/21/24 mcg/actuation nasal spray,suspension ketorolac 10 mg tablet 10 mg PO QID PRN 07/17/20 11/21/24 levothyroxine 150 mcg capsule 150 mcg PO DAILY 07/17/20 11/21/24 lisinopril 5 mg tablet 5 mg PO DAILY 07/17/20 11/21/24 lovastatin 20 mg tablet 20 mg PO DAILY 07/17/20 11/21/24 metformin 1,000 mg tablet 1,000 mg PO BID 07/17/20 11/21/24 olopatadine 0.2 % eye drops 1 drp ophthalmic (eye) QAM 07/17/20 11/21/24 (Pataday) trazodone 50 mg tablet 50 mg PO DAILY 07/17/20 11/21/24 empagliflozin 10 mg tablet 10 mg PO DAILY 09/19/21 11/21/24 (Jardiance) tamsulosin 0.4 mg capsule 0.4 mg PO BID 09/19/21 11/21/24 dulaglutide 0.75 mg/0.5 mL mg SUBCUT .WEEKLY 05/19/24 11/21/24 subcutaneous pen injector (Trulicity) insulin glargine 100 unit/mL (3 22 unit SUBCUT DAILY 05/19/24 11/21/24 mL) subcutaneous pen (Lantus Solostar U-100 Insulin) tramadol 50 mg tablet 50 mg PO Q8H PRN 05/19/24 11/21/24 trazodone 50 mg tablet 50 mg PO DAILY 05/19/24 11/21/24 Previous Rx's ?Medication ?Instructions ?Recorded Nonarticulating AFO to the Left #1 ea 10/23/20 Diabetic shoes with 3 inserts #1 ea 11/01/20 sildenafil 100 mg tablet See Rx Instructions .Route 09/25/21 .COMPLEX sexual activity #20 tabs AFO with metatarsal offloading to #1 ea 08/05/22 left polyethylene glycol 3350 17 17 g PO DAILY #119 grams 11/24/22 gram/dose oral powder (Miralax) External lateral flare for angle #1 ea 12/29/23 deformity to left shoe Allergies Allergy/AdvReac Type Severity Reaction Status Date / Time cephalexin (From Keflex) Allergy rash Verified 11/21/24 08:49 PFSH ED PFSH: Medical History (Updated 03/18/25 @ 11:47 by Cris Sifuentes MD) HTN (hypertension) with goal to be determined CAD (coronary artery disease) Altered gait Benign prostatic hyperplasia with lower urinary tract symptoms ED (erectile dysfunction) Acute retention of urine Acute prostatitis Gross hematuria Hypertension Hyperlipidemia Proteinuria Acute cyclitis Cystitis NOT cyclitis Acute cystitis without hematuria Diabetes Broken leg Injury brain, traumatic Broken foot Surgical History H/O hernia repair H/O abdominal surgery History of ear surgery Family History Family/Other Cancer Diabetes CAD (coronary artery disease) Social History Smoking and tobacco/nicotine status: former use of tobacco/nicotine Alcohol intake: never Substance/Drug Use: never Marital status: Current occupational status: disabled Physical Exam Const: COMMON NORMALS: no acute distress, patient oriented x3 and healthy appearing HENMT: COMMON NORMALS: normocephalic and atraumatic HEAD & SCALP: normocephalic and atraumatic Eye: COMMON NORMALS: conjunctivae normal CONJUNCTIVA: Yes conjunctivae normal Neck/C-Spine: COMMON NORMALS: full ROM and supple Chest: COMMONS NORMALS: normal inspection of the chest Resp: COMMON NORMALS: normal respiratory effort Cardio: COMMON NORMALS: regular rate RATE: regular rate Extremity: COMMON NORMALS: normal to inspection and full ROM Neuro: COMMON NORMALS: patient oriented x3, moves all extremities and no focal motor deficits Psych: COMMON NORMALS: mental status grossly normal, Normal thought process present and cooperative THOUGHT PROCESS: Normal thought process present Skin: COMMON NORMALS: no rashes or lesions noted and no wounds GENERAL SKIN EXAM: no rashes or lesions noted Course Vital Signs: Vital signs: Vital Signs Temperature 98.3 F 03/18/25 11:41 Pulse Rate 72 03/18/25 11:41 Respiratory Rate 16 03/18/25 11:41 Blood Pressure 138/91 03/18/25 11:41 Pulse Oximetry 99 03/18/25 11:41 Oxygen Delivery Me thod Room Air 03/18/25 11:41 MDM - Recheck/Abnormal Lab/Rx Medical Decision Making Patient presents here wanting have his blood sugar checks he does monitor at home maybe wrong he has no medical complaints his blood sugar here is 177 his vitals are normal informed him he needs to follow-up with his PCP to discuss his devices and return if worsening. Medical Records I reviewed the patient's medical records. Lab Data I reviewed the patient's lab results. Laboratory Results POC Glucose 177 mg/dL (70-110) H 03/18/25 11:43 No radiology studies performed this visit Discharge Plan Discharge Patient Disposition: Home Clinical Impression: Diabetes Condition: Stable Prescriptions: No Action trazodone 50 mg tablet 50 mg PO DAILY metformin 1,000 mg tablet 1,000 mg PO BID docusate sodium 100 mg capsule 100 mg PO BID ketorolac 10 mg tablet 10 mg PO QID PRN lovastatin 20 mg tablet 20 mg PO DAILY levothyroxine 150 mcg capsule 150 mcg PO DAILY lisinopril 5 mg tablet 5 mg PO DAILY aspirin 81 mg tablet,delayed release (DR/EC) 81 mg PO DAILY fluticasone propionate 50 mcg/actuation spray,suspension 1 spray intranasal DAILY Rx Instructions: administer into each nostril olopatadine [Pataday] 0.2 % drops 1 drp ophthalmic (eye) QAM albuterol sulfate 90 mcg/actuation HFA aerosol inhaler 2 puff inhalation Q6H PRN tamsulosin 0.4 mg capsule 0.4 mg PO BID Lantus Solostar U-100 Insulin 100 unit/mL (3 mL) insulin pen 22 unit SUBCUT DAILY (DME) Nonarticulating AFO to the Left See Rx Instructions .Route .MEDSUPPLY Qty: 1 0RF Rx Instructions: As directed J P & O Jardiance 10 mg tablet 10 mg PO DAILY (DME) AFO with metatarsal offloading to left See Rx Instructions .Route .MEDSUPPLY Qty: 1 0RF Rx Instructions: As directed ade&o (DME) External lateral flare for angle deformity to left shoe See Rx Instructions .Route .MEDSUPPLY Qty: 1 0RF Rx Instructions: As directed Trulicity 0.75 mg/0.5 mL pen injector SUBCUT .WEEKLY trazodone 50 mg tablet 50 mg PO DAILY tramadol 50 mg tablet 50 mg PO Q8H PRN (DME) Diabetic shoes with 3 inserts See Rx Instructions .ROUTE .MEDSUPPLY Qty: 1 0RF Rx Instructions: As directed sildenafil 100 mg tablet See Rx Instructions .Route .COMPLEX Qty: 20 6RF Rx Instructions: 1/2 TO 1 TAB 1 hour before intercourse, on empty stomach, NO NITROGLYCERIN Miralax 17 gram/dose powder 17 g PO DAILY Qty: 119 0RF Discharge Orders: Discharge ED (Routine); Ordered 03/18/25 Ordered By: Cris Sifuentes Referrals: Gillian Redmond MD [Primary Care Provider, Internal Medicine] Discharge Diet: Advance as tolerated Discharge Activity: Resume usual activity Patient Instructions: Diabetic Hyperglycemia (ED) Print Language: Tunisian Coding Level of Care Code ED Business Systems Analyst for Naveed Mcneil
== END 2025-03-18 11:52 | disposition home or self-care (01) ==
PROVIDERS: Emergency Provider Emergency Medicine; PCP Internal Medicine
DX: E11.9 Type 2 diabetes mellitus without complications (principal); Z79.84 Long term (current) use of oral hypoglycemic drugs; Z79.85 Long-term (current) use of injectable non-insulin antidiabetic drugs; I25.10 Atherosclerotic heart disease of native coronary artery without angina pectoris; E78.5 Hyperlipidemia, unspecified; I10 Essential (primary) hypertension
CPT/HCPCS: 36416; 82962; 99283

== ENCOUNTER → 2025-05-18 13:58 | Outpatient (BNVA) | payer MEDICARE, MEDICAID, SELFPAY | PROVIDERS: PCP Internal Medicine; Visit Provider Internal Medicine Cardiovascular Disease | DX: I25.10 Atherosclerotic heart disease of native coronary artery without angina pectoris (principal); I10 Essential (primary) hypertension; R06.00 Dyspnea, unspecified; Z87.891 Personal history of nicotine dependence | CPT/HCPCS: 99214 ==

== ENCOUNTER → 2025-06-05 10:01 | Outpatient (BNVA) | payer MEDICARE, MEDICAID, SELFPAY | PROVIDERS: PCP Internal Medicine; Visit Provider Podiatrist Foot & Ankle Surgery | DX: E11.42 Type 2 diabetes mellitus with diabetic polyneuropathy (principal); L60.3 Nail dystrophy; L84 Corns and callosities; E11.8 Type 2 diabetes mellitus with unspecified complications; I73.9 Peripheral vascular disease, unspecified; Z79.4 Long term (current) use of insulin; Z79.84 Long term (current) use of oral hypoglycemic drugs | CPT/HCPCS: 11056; 11721 ==